=== PATIENT | female | born 1985 | race African-American/Black ===

== ENCOUNTER 2018-04-30 09:03 | Emergency (ER) | payer OTHER ==
[~2018-04-30] VITALS: Ht 160 cm; Wt 52.5 kg
[2018-04-30 09:06] VITALS: BP 124/82
== END 2018-04-30 09:34 | disposition home or self-care (01) ==
LOC: ED 09:28
DX: S69.91XA Unspecified injury of right wrist, hand and finger(s), initial encounter (principal); X58.XXXA Exposure to other specified factors, initial encounter; Y93.89 Activity, other specified; Y92.098 Other place in other non-institutional residence as the place of occurrence of the external cause; Y99.8 Other external cause status
CPT/HCPCS: 99284